=== PATIENT | male | born 1950 | race Caucasian/White ===

== ENCOUNTER 2018-04-20 06:08 | Day surgery (SDC) | payer OTHER, MEDICARE ==
--- NOTE | 2018-04-20 05:21 | PDHPUP ---
History & Physical Update H&P update statement: This history and physical update is based on an assessment of the patient which was completed after admission or registration (within 24 hours), but prior to the surgery/procedure. H&P update: no change in patient's condition since H&P completed
[2018-04-20] MEDS ORDERED: NS 1,000 ML IV ONE (06:32)
--- NOTE | 2018-04-20 07:12 | PDANEPAE ---
ANE History of Present Illness Prostate bx ANE Past Medical History - Cardiovascular History Hx Hypertension: Yes Hx Arrhythmias: No Hx Chest Pain: No Hx Coronary Artery / Peripheral Vascular Disease: Yes Hx CHF / Valvular Disease: No Hx Palpitations: No - Pulmonary History Hx COPD: No Hx Asthma/Reactive Airway Disease: No Hx Recent Upper Respiratory Infection: No Hx Oxygen in Use at Home: No Hx Sleep Apnea: No Sleep Apnea Screening Result - Last Documented: Negative - Neurologic History Hx Cerebrovascular Accident: No Hx Seizures: No Hx Dementia: No - Endocrine History Hx Diabetes: No Hypothyroid: No Hyperthyroid: No Obesity: no - Renal History Hx Renal Disorders: No - Liver History Hx Hepatic Disorders: No - Neurological & Psychiatric Hx Hx Neurological and Psychiatric Disorders: Yes Neurological / Psychiatric History Comment: DEPRESSION - Cancer History Hx Cancer: No - Congenital Disorder History Hx Congenital Disorders: No - GI History Hx Gastrointestinal Disorders: Yes Gastrointestinal History Comment: GERD - Other Health History Other Health History: NEG - Chronic Pain History Chronic Pain: No - Surgical History Prior Surgeries: CATARACTS. CABG X4 - 5 YRS AGO ANE Review of Systems Review of Systems: - Exercise capacity METS (RN): 6 METS ANE Patient History - Allergies Allergies/Adverse Reactions: simvastatin Allergy (Verified 04/19/18 17:32) JOINT PAIN Zfuuxrm-Nqy-Puc Reductase Inhibitor Allergy (Verified 04/19/18 17:32) MUSCLE CRAMPS - Home Medications Home Medications: Aspirin EC [Aspirin EC 81 mg (OTC)] 81 mg PO DAILY 02/20/13 [Last Taken 04/19/18 ] Avastin RTEYE Q30D PRN 02/20/13 [Last Taken 04/19/18] Cholecalciferol Vit D3 [Vitamin D3 2000 units (OTC)] 2,000 units PO DAILY [Last Taken 04/19/18] Citalopram [celeXA 20 MG (RX)] 20 mg PO DAILY 02/20/13 [Last Taken 04/19/18] Cyanocobalamin (Vitamin B-12) [Vitamin B-12] 2,500 mcg PO DAILY 02/20/13 [Last Taken 04/19/18] Glucosamine/Chondroitin [Glucosamine/Chondroitin (OTC)] 1 each PO DAILY [Last Taken 04/19/18] Hypromellose [Genteal Mild To Moderate] 30 ml OP DAILY PRN 02/20/13 [Last Taken 04/19/18] L.acidoph/L.rhamn/B.bif/B.long [Probiotic Acidophilus Biobeads] 1 each PO DAILY 02/20/13 [Last Taken 04/19/18] Multivitamins [Tab-A-Aram] 1 each PO DAILY 02/20/13 [Last Taken 04/19/18] Niacin [Niacin 500 mg (OTC)] 1,000 mg PO HS 02/20/13 [Last Taken 04/19/18] Mcallen-3 Fatty Acids [Fish Oil 1000 mg (OTC)] 1,000 mg PO DAILY 02/20/13 [Last Taken 04/19/18] Omeprazole [Prilosec 40 mg] 40 mg PO DAILY 02/20/13 [Last Taken 04/20/18] Psyllium Husk/Aspartame [Metamucil Powder] 2 tsp PO DAILY 02/20/13 [Last Taken 04/19/18] Sildenafil Citrate [Viagra 50 MG (RX)] 100 mg PO DAILY PRN 02/20/13 [Last Taken 04/19/18] buPROPion [Wellbutrin 100mg (RX)] 100 mg PO BID 02/20/13 [Last Taken 04/20/18] buPROPion [Wellbutrin 75mg (RX)] 75 mg PO BID 02/20/13 [Last Taken 02/21/13 18: 00] Herbals/Supplements -Info Only 04/19/18 [Last Taken 04/19/18] Ramipril 04/19/18 [Last Taken 04/19/18] Repatha Syringe 04/19/18 [Last Taken 04/19/18] Rosuvastatin Calcium 04/19/18 [Last Taken 04/19/18] Zetia 04/19/18 [Last Taken 04/20/18] - NPO status NPO Status: no food or drink >8 hours NPO Since - Liquids (Date): 04/20/18 NPO Since - Liquids (Time): 06:00 NPO Since - Solids (Date): 04/19/18 NPO Since - Solids (Time): 20:00 - Anes Hx Anes Hx: no prior problems - Smoking Hx Smoking Status: Never smoked Marijuana use: No - Alcohol Use Alcohol Use: Sober - Family Anes Hx Family Hx Anesthesia Complications: NEG ANE Labs/Vital Signs - Vital Signs Blood Pressure: 122/78 Heart Rate: 68 Respiratory Rate: 16 O2 Sat (%): 98 Height: 167.64 cm Weight: 69.4 kg ANE Physical Exam - Airway Neck exam: decreased ROM Mallampati Score: Class 2 - Pulmonary Pulmonary: no respiratory distress - Cardiovascular Cardiovascular: regular rate and rhythym - ASA Status ASA Status: III ANE Anesthesia Plan Anesthesia Plan: GA w LMA
[2018-04-20] MEDS ORDERED: MIDAZOLAM 2 MG/2 ML VIAL IVP ONE (07:18)
[2018-04-20] MEDS ORDERED: MIDAZOLAM 2 MG/2 ML VIAL ONE (07:18)
[2018-04-20] MEDS ORDERED: PROPOFOL/EMULSION 500 MG/50 ML BOTTLE IV ONE (07:28)
[2018-04-20] MEDS ORDERED: fentaNYL 250 MCG/5 ML INJ ONE (07:28)
[2018-04-20] MEDS ORDERED: GENTAMICIN SULFATE 120 MG in D5W 100 ML IV ONE (07:30)
--- NOTE | 2018-04-20 08:08 | POSTOPPROG ---
Post Op Note Date of Operation: 04/20/18 Surgeon: Conrad Salazar Anesthesia: IV Sedation Pre-op Diagnosis: elevated PSA Post-op Diagnosis: same Procedure: Transrectal ultrasound guided prostate biopsies Inf/Abcess present in the surg proc area at time of surgery?: No EBL: Minimal Complications: none
[2018-04-20] MEDS ORDERED: ONDANSETRON 4 MG/2 ML VIAL IVP PRN (08:17)
[2018-04-20] MEDS ORDERED: HYDROCODONE/APAP 5/325 TAB PO PRN (08:17)
[2018-04-20] MEDS ORDERED: ACETAMINOPHEN 500 MG TAB PO PRN (08:17)
[2018-04-20] MEDS ORDERED: fentaNYL 100 MCG/2 ML INJ IVP PRN (08:17)
[2018-04-20] MEDS ORDERED: NALOXONE HCL 0.4 MG/ML INJ IVP PRN (08:17)
--- NOTE | 2018-04-20 08:19 | POSTANESTH ---
Post Anesthetic Evaluation Cardiovascular Status: Normal, Stable Respiratory Status: Normal, Stable Level of Consciousness/Mental Status: Can Participate in Eval Pain Control: Adequate, Prn Tx Ordered Nausea/Vomiting Control: Adequate, Prn Tx Ordered Complications Possibly Related to Anesthesia: None Noted
--- NOTE | 2018-04-20 08:50 | GOP ---
[f rep st] OPERATIVE REPORT DATE OF OPERATION: 04/20/2018 SURGEON: Conrad Salazar MD PREOPERATIVE DIAGNOSIS: Elevated prostate specific antigen. POSTOPERATIVE DIAGNOSIS: Elevated prostate specific antigen. PROCEDURE PERFORMED: Transrectal ultrasound-guided prostate biopsies. FINDINGS: INDICATIONS: Patient is a 67-year-old male with progressively increasing PSA levels. After discussi ng options, he elected to come in for ultrasound-guided biopsies. DESCRIPTION OF PROCEDURE: With the patient under IV sedation in the left lateral decubitus position, the transrectal ultrasound probe was inserted and measurements of the prostate were taken. Peripros thetic tissue was anesthetized with a total of 10 mL of 1% lidocaine. Core biopsies of the right and left apical, mid, and base tissue were obtained. The patient tolerated the procedure well and was t aken to recovery room in stable condition. There were no intraoperative complications or blood loss. /[id number]/MODL
[2018-04-20 10:37] VITALS: BP 125/69
== END 2018-04-20 10:35 | disposition home or self-care (01) ==
LOC: FSGY 06:08
PROVIDERS: ATTEND Urology
PROC: BV49ZZZ Ultrasonography of Prostate and Seminal Vesicles (ICD-10-PCS; principal; 2018-04-20 07:15)
PROC: 0VB07ZX Excision of Prostate, Via Natural or Artificial Opening, Diagnostic (ICD-10-PCS; principal; 2018-04-20 07:15)
DX: R97.20 Elevated prostate specific antigen [PSA] (principal); K21.0 Gastro-esophageal reflux disease with esophagitis; E78.00 Pure hypercholesterolemia, unspecified; F32.9 Major depressive disorder, single episode, unspecified; Z95.1 Presence of aortocoronary bypass graft
CPT/HCPCS: J1580; J2250; J2704; J3010

== ENCOUNTER → 2019-04-11 | Outpatient (CLI) | payer OTHER, MEDICARE | LOC: FIMAGING 09:44 ==